=== PATIENT | female | born 1945 | race Caucasian/White ===

== ENCOUNTER → 2016-09-09 | Outpatient (CLI) | payer MEDICARE | END | disposition home or self-care (01) | LOC: GMA 12:28 | PROVIDERS: ATTEND Nurse Practitioner Family | DX: N30.00 Acute cystitis without hematuria (principal) ==

== ENCOUNTER → 2016-09-18 | Outpatient (CLI) | payer MEDICARE | END | disposition home or self-care (01) | LOC: GMAH 14:04 | PROVIDERS: ATTEND Family Medicine | DX: N30.00 Acute cystitis without hematuria (principal) ==

== ENCOUNTER → 2017-01-19 | Outpatient (CLI) | payer MEDICARE | END | disposition home or self-care (01) | LOC: GMA 18:25 | PROVIDERS: ATTEND Nurse Practitioner Family | DX: N30.00 Acute cystitis without hematuria (principal) ==

== ENCOUNTER → 2017-08-09 | Outpatient (CLI) | payer MEDICARE ==
--- NOTE | 2017-08-09 18:59 | CT ---
EXAM DESCRIPTION: Chest w/Contrast CLINICAL HISTORY: RADIOLOGIC ABNORMALITY OF CHEST COMPARISON: CT chest without contrast same day TECHNIQUE: Contiguous axial images of the chest were obtained from the thoracic inlet up to the upper abdomen followed by reconstruction images. This exam was performed according to our departmental dose-optimization program, which includes automated exposure control, adjustment of the mA and/or kV according to patient size and/or use of iterative reconstruction technique. FINDINGS: There is dense consolidation versus mass again seen, measuring 4.3 cm transverse in the medial left upper lung. Mildly enlarged mediastinal lymph nodes are seen. Fairly well-defined low-attenuation 20 mm lesion is seen in the hepatic dome. Poorly defined 5 mm low-attenuation lesion is seen in the right liver. Mildly enlarged left axillary lymph nodes. There are again extensive bilateral emphysematous changes with numerous bilateral pulmonary bulla. No pneumothorax. No other acute abnormality.. The aorta is of normal contour and tapering. IMPRESSION: Possible mass in the left upper medial lung. Findings are worrisome for neoplasm but this could be inflammatory. Granulomatous or fungal etiologies are possible. Follow-up is recommended. Electronically signed by: Glen Lamar 08/09/2017 6:58 PM HAND TACKER
--- NOTE | 2017-08-09 19:06 | CT ---
PROCEDURE: Chest w/o Contrast CLINICAL HISTORY: 72 years Female RADIOLOGIC ABNORMALITY OF CHEST COMPARISON: Chest x-ray study from 08/09/2017. TECHNIQUE: Contiguous axial images obtained through the chest without IV contrast. Reformatted images obtained. This exam was performed according to our department optimization program which includes automated exposure control, adjustment of the mA and/or kv according to patient size and/or use of iterative reconstruction technique. FINDINGS: There is a low-density lesion in the superior liver measuring 1.8 cm that is felt to represent a cyst. There is a 0.55 cm low density lesion in the superior lateral liver which is incompletely characterized on this study. No pericardial effusion. There are several small lymph nodes in the mediastinum. A lymph node visualized adjacent to the mass lesion in the region of the AP window measures 1.1 x 0.6 cm. Mild atherosclerotic calcifications in the thoracic aorta. There is a mass lesion in the superior medial left lung measuring 3.7 cm in height by 3.9 cm in transverse diameter by 3.5 cm in AP diameter. The appearance suggests a malignant lesion. Biopsy recommended. No consolidating infiltrates or pleural effusions. There are emphysematous changes with multiple small blebs visualized throughout the lungs. Degenerative changes in the spine. Mild T8 compression fracture deformity which appears chronic. IMPRESSION: Malignant appearing mass lesion in the superior medial left lung. Biopsy recommended. There are several small lymph nodes in the mediastinum which given the adjacent lung mass are indeterminate. Emphysematous changes in the lungs. Probable cysts in the liver although one of the lesions is too small to adequately characterize on this study. Electronically signed by: Lonny Brady MD 08/09/2017 7:05 PM SENIOR PYTHON DEVELOPER
== END ==
LOC: GMA 17:25
PROVIDERS: ATTEND Physician Assistant
DX: R91.8 Other nonspecific abnormal finding of lung field (principal); R05 Cough

== ENCOUNTER → 2017-11-08 | Outpatient (CLI) | payer MEDICARE | LOC: GMAH 14:37 | PROVIDERS: ATTEND Physician Assistant | DX: N30.00 Acute cystitis without hematuria (principal) ==

== ENCOUNTER → 2017-12-25 | Outpatient (CLI) | payer MEDICARE ==
--- NOTE | 2017-12-25 15:39 | CT ---
EXAM DESCRIPTION: Chest w/Contrast : Computed Tomography. CLINICAL HISTORY: NON-SMALL CELL CARCINOMA OF LEFT LUNG. Follow-up. COMPARISON: CT scan of the chest with IV contrast 08/09/2017. TECHNIQUE: Spiral-axial scans at 5.0 mm intervals through the lungs and thorax without IV contrast. 2.5 mm lung algorithm axial reconstructions. Coronal and sagittal 2.0 Mm reconstructions. No adverse reactions. Total Exam DLP: 299.41 mGy-cm. This exam was performed according to our departmental dose-optimization program which includes automated exposure control, adjustment of the mA and/or kV according to patient size and/or use of iterative reconstruction technique; to reduce radiation dose to as low as reasonably achievable (ALARA). FINDINGS: Again noted is a soft tissue mass with partial enhancement and ill-defined borders abutting the medial left pleura near the apex extending to the level of the left sternoclavicular joint. The mass continues to have spiculated borders, but has decreased in size, measuring 3.5 x 2.8 cm in the transverse plane and 2.[address] through the mass and 3.3 cm along the pleura. Internally the mass contains more air and there is increased amount of airways no visualized in the periphery of the mass. No significant invasion of the adjacent mediastinum though the mass remains adjacent to the junction of the left innominate vein and left internal jugular vein. Lateral and superior to the mass in the anterior lung apex there is increased irregular density not mass but most likely inflammatory reaction within the radiation portal. Parenchymal cystic change is also visualized in this lung segment. Again noted are multiple emphysematous blebs and some emphysematous bulla in a centrilobular pattern throughout both lungs, slightly less prevalent in the lower lobes. Scattered bilateral peripheral groundglass densities are stable. No new remote mass is seen in either lung. No pleural effusion or pneumothorax. Heterogeneous enhancement of the thyroid gland with no adjacent soft tissue masses. No enlarged lymph nodes in the mediastinum and gael or axilla and no new soft tissue masses in these locations. Injection port for VAD is in the superior right breast. VAD tip just above the superior caval atrial junction. Asymmetric density noted in the inferior right breast. No overlying left breast density changes anterior to the lung mass. The peritoneal space subdiaphragmatic region shows no free air or fluid. Normal enhancement and size of the spleen and adrenal glands. Included stomach and pancreas are unremarkable. Stable 2 cm cyst posterior superior right hepatic lobe. Decreased bone density in the thorax with exaggerated kyphosis. Again noted is partial compression of the middle and anterior aspect of the T8 vertebral body stable since the prior study. This is the apex of the kyphosis. No other bony abnormalities, stable since prior CT scan. IMPRESSION: 1. Malignant lesion in the medial apex of the left lung is decreasing in size and central mass, since the prior study August 2017, with increasing number of air and airways seen within the mass. No progressive invasion of the medial left pleura or mediastinum. No new masses or nodules in the lungs bilaterally. Stable diffuse centrilobular emphysema bilaterally. 2. No enlarging lymph nodes or soft tissue masses in the mediastinum hilum neck base chest wall or axilla. VAD centrally with right subclavian access customary position. 3. Questionable increased focal asymmetry in the inferior left breast since the prior study. No record of mammograms at this facility since August 2014. Consider follow-up bilateral digital diagnostic mammogram. 4. Stable 2 cm cyst in the right hepatic lobe. Stable partial compression type vertebral body fracture at T8 with exaggerated kyphosis. Electronically signed by: Glen Acosta MD 12/25/2017 3:38 PM CDT
== END ==
LOC: CT 10:14
PROVIDERS: ATTEND Internal Medicine Hematology & Oncology
DX: C34.92 Malignant neoplasm of unspecified part of left bronchus or lung (principal); D64.81 Anemia due to antineoplastic chemotherapy; T45.1X5A Adverse effect of antineoplastic and immunosuppressive drugs, initial encounter; K76.89 Other specified diseases of liver; M48.54XA Collapsed vertebra, not elsewhere classified, thoracic region, initial encounter for fracture

== ENCOUNTER → 2018-03-28 | Outpatient (CLI) | payer MEDICARE ==
--- NOTE | 2018-03-28 19:25 | CT ---
EXAM DESCRIPTION: Chest w/Contrast : Computed Tomography. CLINICAL HISTORY: NON-SMALL CELL CARCINOMA OF LEFT LUNG COMPARISON: Abdomen and pelvis CT scan with contrast on this visit. CT scan of the chest with contrast 12/25/2017. TECHNIQUE: Spiral-axial scans at 5 x 5 mm intervals through the lungs and thorax with IV contrast. 2.5 mm lung algorithm axial reconstructions. Coronal and sagittal 2.0 Mm reconstructions. No adverse reactions. Total Exam DLP: 355.54 mGy-cm. This exam was performed according to our departmental dose-optimization program which includes automated exposure control, adjustment of the mA and/or kV according to patient size and/or use of iterative reconstruction technique; to reduce radiation dose to as low as reasonably achievable (ALARA). FINDINGS: Compared to the prior study, the mass involving the left anterior medial lung apex and the anterior medial pleura from the left first costosternal cartilage extending just below the level of the aortic arch is essentially absent except for medial pleural thickening and parenchymal density seen on axial series 5, images 5 through 27. However, there is now increased pleural thickening in the left apex anteriorly and laterally and a parenchymal mass has developed anterior to the mid coronal plane, associated with an increase in thickened septa, and emphysematous bulla and cavities in the left upper lobe. This soft tissue mass measures approximately 3.8 x 1.5 x 1.5 cm. Increased pleural thickening, interstitial and septal thickening, and increased cavities and emphysematous bulla are also seen in the posterior left upper lobe and the superior segment of the left lower lobe. Volume loss and elevation of the left hilum is noted. Peripheral groundglass densities seen in the right upper lobe in the apex but not in the remaining segments. There is also groundglass density in the posterior superior apex of the superior segment right lower lobe. Diffuse blebs and bulla again noted in the right lung, but no new nodules in or masses in the right lung or in the left lingula or lower lobe. No pleural effusion or pneumothorax bilaterally. Thyroid gland is stable. No new soft tissue masses or adenopathy in the mediastinum or gael. No new adenopathy in the axilla bilaterally. Stable position of right subclavian VAD with tip in the SVC. Stable spondylosis in the thoracic spine with partial compression of the T8 vertebral body. No new blastic or lytic lesions IMPRESSION: 1. Medial left apical ligament mass is essentially absent except for minimal pleural thickening and parenchymal density abutting the medial mediastinum in the left upper lobe. However a soft tissue mass is now visualized in the anterior medial left apical segment along with significant increase in emphysematous blebs and bulla, cavities, septal thickening and pleural thickening involving the upper left upper lobe and the superior aspect of the superior segment of the left lower lobe. Also volume loss in the left upper lobe and elevation of the left hilum since the prior study. The soft tissue mass could represent atelectatic lung, eighth completely filled cavity, scarring, infiltrate, or less likely, recurrent tumor. These changes may be related to prior therapy. 2. Increased groundglass infiltrate in the superior segment of the right lower lobe and in the periphery of the right upper lobe posteriorly and laterally. Electronically signed by: Glen Acosta MD 03/28/2018 7:23 PM CDT
--- NOTE | 2018-03-28 19:42 | CT ---
EXAM DESCRIPTION: Abdomen w/Contrast: Computed Tomography. CLINICAL HISTORY: LUNG CANCER COMPARISON: None. TECHNIQUE: Spiral-axial scans at 5 x 5 mm intervals through the abdomen, after nonionic IV contrast. No oral contrast. Coronal and sagittal 2.0 mm reconstructions. Delayed 5 x 5 mm scans, liver to the upper pelvis. No adverse reactions. Total Exam DLP: 1142.35 mGy-cm. This exam was performed according to our departmental CT dose-optimization program which includes automated exposure control, adjustment of the mA and/or kV according to patient size and/or use of iterative reconstruction technique; to reduce radiation dose to as low as reasonably achievable (ALARA). FINDINGS: Liver, Stomach, Spleen, Adrenal Glands: Stable cysts in the liver. Stomach is negative. Other solid organs unremarkable. Pancreas, Gallbladder, Ducts: Gallbladder visualized. Ducts and pancreas are negative. Kidneys: Small cysts in the inferior cortex of the left kidney. Included ureters are unremarkable. Mesentery: Question of minimal stranding abutting the distal descending colon and sigmoid. Please see below. No free air or free fluid. Aorta: Minimal atherosclerotic calcification and normal caliber. Small Bowel: Normal caliber and gas unremarkable. Terminal Ileum/Cecum: Negative. Appendix not definitely seen but may be inferior to the imaging [id number] on this study. Normal density of surrounding fat. Colon: Unremarkable to the level of the mid descending colon where the hurd appear to be edematous and the overall caliber of the colon is reduced with loss of haustral markings distal rectosigmoid is not included. Uterus is anteverted and bilateral ovaries partially visualized. Spine: Spondylosis in the thoracic spine and grade 1 L4-5 anterolisthesis. Abdominal Wall/Back Soft Tissues: Unremarkable. IMPRESSION: 1. No masses or enlargement of the abdominal organs. No free fluid peritoneal or retroperitoneal masses. 2. Small cortical cyst inferior left kidney are stable. Stable cysts in the liver. 3. Edema in the hurd of the distal descending colon and sigmoid colon with decreased outer wall caliber of the bowel to the level of the inferior images of the scan. This could represent an early nonspecific colitis. Not seen on the prior study. Electronically signed by: Glen Acosta MD 03/28/2018 7:41 PM CDT
== END ==
LOC: CT 08:26
PROVIDERS: ATTEND Internal Medicine Hematology & Oncology
DX: C34.92 Malignant neoplasm of unspecified part of left bronchus or lung (principal); N28.1 Cyst of kidney, acquired; K76.89 Other specified diseases of liver

== ENCOUNTER → 2018-04-05 | Outpatient (CLI) | payer MEDICARE | LOC: GMATM 12:46 | PROVIDERS: ATTEND Nurse Practitioner Family | DX: N30.00 Acute cystitis without hematuria (principal) ==

== ENCOUNTER → 2018-09-12 | Outpatient (CLI) | payer MEDICARE ==
--- NOTE | 2018-09-13 09:47 | CT ---
EXAM DESCRIPTION: Chest w/o Contrast CLINICAL HISTORY: 73 years, Female, MALIGNANT NEOPLASM OF UNSP PART OF UNSP BRONCHUS OR LUNG COMPARISON: None TECHNIQUE: Thin-section noncontrast axial CT images are obtained according to our protocol. Reconstructed MPR images are created and reviewed as well. FINDINGS: Lungs: Consolidated area in the apicoposterior segment left upper lobe is smaller than on previous study and more posterior in location suggesting radiation fibrosis and retraction with clearance of surrounding radiation pneumonitis. Shrinking tumor might also partially account for the finding. Extensive cystic emphysematous changes throughout the lungs. Reticulonodular infiltrate in the right apex is seen with medial right apical parenchymal scarring. Lesser changes in the superior segment right lower lobe. The cystic changes in the lungs are somewhat unusual and could represent lymphangioleiomyomatosis rather than emphysema. Clinical correlation recommended. Mediastinum: Lymph nodes are normal in size. Port-A-Cath on the right with tip in the lower superior vena cava. Small cystic structure along the left side of the heart may be pericardial cyst 2 cm. This was present previously. A low density lymph node might have similar appearance but is thought less likely. Normal vascular contours. Heart size is normal with no pericardial effusion. Chest wall/axilla: No mass or adenopathy. Breast tissue appears symmetrical. Lower neck/supraclavicular: No mass or adenopathy. Upper abdomen: Cyst in the upper subdiaphragmatic right lobe of the liver measures 2.1 cm. Another tiny cyst more inferiorly in the posterior right lobe measures 4 mm. Prominent intrarenal collecting systems bilaterally similar to previous study. Otherwise unremarkable upper abdominal viscera. Coronal and sagittal reformatted images confirm the findings. Old mid thoracic vertebral compression. Consolidated area in the left upper lobe is smaller than on previous exam. Paramediastinal radiation changes in the upper lung on the right. IMPRESSION: Decreased size of left apical radiation pneumonitis/fibrosis compared to previous study. This exam was performed according to our departmental dose-optimization program, which includes automated exposure control, adjustment of the mA and/or kV according to patient size and/or use of iterative reconstruction technique. Total DLP equals 283.13 mGycm. Electronically signed by: Macario Leone MD 09/13/2018 9:44 AM CDT
== END ==
LOC: CT 10:00
PROVIDERS: ATTEND Family Medicine
DX: C34.90 Malignant neoplasm of unspecified part of unspecified bronchus or lung (principal)

== ENCOUNTER → 2018-12-02 | Outpatient (CLI) | payer MEDICARE | LOC: GMAH 11:38 | PROVIDERS: ATTEND Family Medicine | DX: I10 Essential (primary) hypertension (principal) ==

== ENCOUNTER → 2019-01-18 | Outpatient (CLI) | payer MEDICARE | LOC: GMATM 13:58 | PROVIDERS: ATTEND Nurse Practitioner Family | DX: N30.00 Acute cystitis without hematuria (principal) ==

== ENCOUNTER → 2019-05-26 | Outpatient (CLI) | payer MEDICARE ==
--- NOTE | 2019-05-27 13:46 | CT ---
EXAM DESCRIPTION: Abdomen/Pelvis w/wo Contrast: Computed Tomography. CLINICAL HISTORY: UNSPECIFIED RENAL COLIC. History of lung cancer left upper lobe. COMPARISON: . Chest CT scan without contrast August 2018. CT scan of abdomen and pelvis March 2018. TECHNIQUE: Spiral-axial scans at 5 x 5 mm intervals through the abdomen and pelvis before and after 75 mL Optiray 320 nonionic IV contrast. Coronal and sagittal 2.0 mm reconstructions. 5 mm Delayed helical-axial scans, liver through the pubic symphysis. No adverse reactions. Total Exam DLP 1730.79 mGy - cm. This exam was performed according to our departmental CT dose-optimization program which includes automated exposure control, adjustment of the mA and/or kV according to patient size and/or use of iterative reconstruction technique; to reduce radiation dose to as low as reasonably achievable (ALARA). FINDINGS: Kidneys and Ureters: Mild bilateral hydronephrosis, and proximal pelvic mild enlargement. Caliber of the ureters upper normal limits especially mid right ureter. Bilateral ureters course anterior to the bilateral common iliac arteries with mass effect on the distal mid right ureter from small bowel, right common iliac artery, distal right psoas muscle and common right iliac vein. The iliac artery is not calcified at this segment. No mass effect on the left ureter. Bilateral small renal cysts are stable. Pelvic Organs: Normal position of the uterus. Calcification in the superior myometrium. Borderline thickening of the endometrial canal 10 mm. Calcifications in the cervix.. Calcifications in the pelvis. No fluid in the cul-de-sac. Left ovary visualized, right ovary small over this represents another soft tissue structure. Lung bases and pleura: Left pleural effusion. Hyperinflated lungs with bilateral scattered blebs and bulla in the upper and midlung tyler. Minimal scarring in the left lower lobe. Minimal coronary artery calcification. 3 mm subpleural solid nodule in the lateral right lower lobe on the prior study now measures 5.2 mm with minimally lobulated margins but no spiculations. Liver, Stomach, Spleen, Adrenal Glands: 2.1 cm cyst near the dome of the right liver subcapsular and stable. Other stable smaller subcapsular cyst lateral right lobe. Liver slightly smaller since the prior study. Stomach and other solid organs are negative. Pancreas, Gallbladder, Ducts: Common bile duct slightly dilated. Heterogeneous appearance of the pancreatic head immediately delay IV contrast. No surrounding fatty inflammatory changes. Stable since the prior study. Mesentery: No fatty stranding fascial thickening free air or free fluid. Aorta: Minimal atherosclerotic calcification and normal caliber. Small Bowel: Minimal gas no significant distention or air-fluid levels. Terminal Ileum/Cecum: Normal caliber. Retrocecal appendix short with no inflammatory changes. Colon: Edematous hurd of the transverse and descending and proximal sigmoid colon with no significant distention and no serosal abnormality or inflammatory changes in the surrounding mesentery. This was also seen on the prior study beginning at the splenic flexure. No obstruction. Spine and Bony Pelvis: Spondylosis lower thoracic spine and minimal dextroscoliosis. Mixed density lesion, enlarging in the mid left iliac bone abutting the superior facet of the left SI joint since the prior study and less well-defined margins. Measures approximately 2.9 x 2.1 x 1.5 cm. No adjacent soft tissue mass. Questionable lytic lesion in the more superior left iliac crest on axial images -. This could represent physiologic thinning of the bone. No soft tissue mass. Abdominal Wall/Back Soft Tissues: Small fatty inguinal hernias bilaterally. Minimal umbilical diastases not containing bowel. IMPRESSION: 1. Right pleural effusion this patient with lung cancer right upper lobe with prior treatment. New since chest CT scan August 2018. Enlarging solid pulmonary nodule in the subpleural right lower lobe since that same CT scan. Stable emphysematous disease in the mid and lower lung tyler. Consider diagnostic left thoracentesis. Dr. Santos states that patient is scheduled for lung CT scan the first week of June 2019. 2. Heterogeneous appearance of the pancreatic head with dilation of the common bile duct is stable. 3. Sclerotic lesion seen on the prior study in the iliac bone abutting the superior facet of the left SI joint, is now larger with mixed density but no definite cortical breakthrough or soft tissue mass. Is there history of bone marrow donor site or biopsy? Possible lytic lesion mid left iliac crest without soft tissue mass, not seen on the prior pelvic CT scan. Consider radionuclide bone imaging or PET imaging. 4. Mild bilateral hydronephrosis and prominence of the bilateral renal pelves stable since the prior study. Minimal mass effect on the distal mid right ureter, by vascular and soft tissue structures, but no hydroureter bilaterally. 5. Edematous hurd of the mid and distal colon without obstruction or inflammatory changes in the surrounding fatty tissues. More proximal than on the prior study. Is there history of colitis? CRITICAL COMMUNICATION: The critical value was discussed directly by phone by Dr. Acosta, with Dr. Antonio Santos, at approximately 1335 hours, on May 27, 2019 Electronically signed by: Glen Acosta MD 05/27/2019 1:44 PM [facility]
== END ==
LOC: LAB.O 10:02
PROVIDERS: ATTEND Family Medicine
DX: N13.30 Unspecified hydronephrosis (principal); N28.9 Disorder of kidney and ureter, unspecified; J90 Pleural effusion, not elsewhere classified; R91.1 Solitary pulmonary nodule; J43.9 Emphysema, unspecified; M89.9 Disorder of bone, unspecified; R60.9 Edema, unspecified

== ENCOUNTER → 2019-10-13 | Outpatient (CLI) | payer MEDICARE ==
--- NOTE | 2019-10-13 12:11 | CT ---
EXAM DESCRIPTION: Abdoment/Pelvis w/o Contrast (accession [id number]), Chest w/o Contrast (accession [id number]) CLINICAL HISTORY: 74 years Female, NON-SMALL CELL CARCINOMA COMPARISON: CT abdomen and pelvis 05/26/2019. CT chest 09/12/2018. TECHNIQUE: CT images of the chest, abdomen, and pelvis without IV contrast. Multiplanar reformations provided. This exam was performed according to our departmental dose-optimization program, which includes automated exposure control, adjustment of the mA and/or kV according to patient size and/or use of iterative reconstruction technique. CT CHEST FINDINGS: Heart and mediastinum: Heart is normal size. Small pericardial effusion measuring up to 4 mm in thickness anteriorly. Unremarkable esophagus. Mild atherosclerosis. No mediastinal adenopathy appreciated. Evaluation for hilar lymphadenopathy limited without intravenous contrast. Effusion port in the right chest wall with its right IJ central venous catheter terminating near the cavoatrial junction. Thyroid Gland: Normal. Lungs: Emphysematous changes bilaterally. There are multiple nodules throughout the lungs, reference nodule is a 6 mm round partially solid nodule measuring 6 mm in the right lower lobe on image 61, series 8. This measurement of 5 mm on 05/26/2019 and no greater than 2 mm on 09/12/2018. There is masslike consolidation within the posterior left upper lobe extending to the hilum. This is becoming more solid and confluent when compared to 09/12/2018 with mild air bronchograms internally. Airways: Mild bronchiectasis. No airway filling defects. Pleura: Large left pleural effusion. No pneumothorax. Musculoskeletal and Soft Tissues: No acute fracture or aggressive appearing osseous lesion. Soft tissues unremarkable. CT ABDOMEN/PELVIS FINDINGS: Solid Organs: Stable hypodense lesions within the liver measuring up to 2.2 cm in the right hepatic dome as before which may represent hemangiomas or cysts. Unremarkable noncontrast appearance of the spleen, pancreas, gallbladder, adrenal glands, and kidneys. GI tract: Normal-appearing stomach. No small bowel obstruction. Mild chronic stool. Normal appendix. Vascular: Mild atherosclerosis. Musculoskeletal and soft tissues: No acute fracture. Stable sclerosis along the left ilium. Soft tissues unremarkable. Urinary bladder: Normal. Uterus and adnexa: Unremarkable uterus. Other: None. IMPRESSION: 1. Increased masslike consolidation in the left upper lobe and increased now large left pleural effusion. Although findings may be contributed by posttreatment related changes, recurrence of malignancy is of primary concern. PET/CT may be obtained to further evaluate. 2. Redemonstrated subcentimeter lung nodules which may represent intrapulmonary metastases. 3. Stable sclerosis left ilium when compared to 05/26/2019. Bone metastases considered versus posttreatment related changes, if performed. This can be further evaluated with PET/CT as well and nuclear medicine bone scan if indicated. Electronically signed by: Gunner Sims MD 10/13/2019 12:09 PM CDT
== END ==
LOC: CT 10:48
PROVIDERS: ATTEND Internal Medicine Hematology & Oncology
DX: C34.92 Malignant neoplasm of unspecified part of left bronchus or lung (principal); R91.8 Other nonspecific abnormal finding of lung field; J90 Pleural effusion, not elsewhere classified; M89.9 Disorder of bone, unspecified

== ENCOUNTER 2019-11-20 18:44 | Emergency (ER) | payer MEDICARE ==
[2019-11-20] MEDS ORDERED: TETANUS,DIPHTHERIA,PERTUSSIS 1 EA SYG IM ONE (18:51)
[2019-11-20 18:59] VITALS: O2SAT 95
--- NOTE | 2019-11-20 19:41 | RAD ---
EXAM DESCRIPTION: Wrist,Right 3 Views CLINICAL HISTORY: 74 years Female fall with right wrist pain and swelling. COMPARISON: None TECHNIQUE: Three images of the right wrist were obtained. FINDINGS: Impacted fractures distal radius. Nondisplaced fracture ulnar styloid. Suspected fracture waist navicular bone. Moderate bony demineralization. Mild erosive change lunate bone. IMPRESSION: Fractures distal radius and ulna as well as navicular bone. Electronically signed by: Fatou Campbell MD 11/20/2019 7:39 PM CDT
--- NOTE | 2019-11-20 19:53 | CT ---
EXAM: Head CLINICAL INDICATION: 74-year-old female status post fall with head trauma. COMPARISON: None. TECHNIQUE: CT brain without contrast. This exam was performed according to our departmental dose optimization program which includes use of automated exposure control, adjustment of the mA and/or kV according to patient size and/or use of iterative reconstruction technique. FINDINGS: The ventricles, sulci, and cisterns are within normal limits. The kelly-white matter differentiation is preserved. There is no mass effect, midline shift, intra- or extra-axial fluid collection/acute hemorrhage. The osseous review a focal area of groundglass attenuation at the level of the LEFT orbital roof with expansile appearance diffusely measuring approximately up to 2.8 cm in diameter. This finding raises the possibility of groundglass type bony lesion favoring fibrous dysplasia, however correlation with patient prior imaging and clinical history is recommended to exclude the possibility of other sclerotic type bony lesion. The paranasal sinuses and mastoid air cells are clear. 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 IMPRESSION: 1. No acute intracranial abnormalities. 2. 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 Correlation with patient clinical history, prior imaging is recommended. Electronically signed by: Carolee Bradford MD 11/20/2019 7:51 PM CDT
--- NOTE | 2019-11-20 20:42 | ED.PDOC ---
History of Present Illness - General Chief Complaint: Trauma Stated Complaint: I tripped and fell Time Seen by Provider: 11/20/19 18:50 Source: patient, RN notes reviewed, Vital Signs reviewed, family - Exam Limitations: no limitations - History of Present Illness Initial Comments: Patient presents with her status post trip and fall. Patient complains of some facial pain, head pain and right wrist pain. The pain is throbbing in nature. Worse with movement or palpation. Better with immobilization. Nonradiating occurred less than 1 hour ago. Timing/Duration: 1/2 hour Severity: mild Improving Factors: immobilization Worsening Factors: movement Associated Symptoms: headaches, nausea/vomiting Allergies/Adverse Reactions: Allergies Morphine Allergy (Unverified 01/31/13 14:18) Penicillins Allergy (Unverified 01/31/13 14:18) Review of Systems - Review of Systems Constitutional: States: no symptoms reported, see HPI EENTM: States: nose pain. Denies: blurred vision, double vision Respiratory: States: no symptoms reported. Denies: cough, short of breath Cardiology: States: no symptoms reported. Denies: chest pain, palpitations, syncope Gastrointestinal/Abdominal: States: see HPI, nausea Genitourinary: States: no symptoms reported Musculoskeletal: States: see HPI, joint pain. Denies: back pain, neck pain Skin: States: see HPI, other - Facial lacerations and hand lacerations Neurological: States: no symptoms reported. Denies: tingling, weakness Endocrine: States: no symptoms reported Hematologic/Lymphatic: States: no symptoms reported All other Systems: No Change from Baseline Past Medical History (General) - Patient Medical History Hx Seizures: No Hx Stroke: No Hx Dementia: No Hx Asthma: No Hx of COPD: No Hx Cardiac Disorders: No Hx Congestive Heart Failure: No Hx Pacemaker: No Hx Hypertension: No Hx Thyroid Disease: No Hx Diabetes: No Hx Gastroesophageal Reflux: No Hx Renal Disease: No Hx Cancer: Yes - Lung Hx Hepatitis C: No Hx MRSA: No Surgical History: tonsillectomy, other - Vaccination History Hx Tetanus, Diphtheria Vaccination: No Hx Influenza Vaccination: Yes Hx Pneumococcal Vaccination: Yes - Social History Hx Tobacco Use: Yes Hx Chewing Tobacco Use: No Hx Alcohol Use: Yes Hx Substance Use: No Hx Substance Use Treatment: No Hx Depression: No Feels Threatened In Home Enviroment: No Feels Threatened In a Relationship: No Hx Physical Abuse: No Hx Emotional Abuse: No Hx Suspected Abuse: No - Female History Patient is a Female of Child Bearing Age (10 -59 yrs old): No Family Medical History - Family History Mother Family History: Unknown Physical Exam - Physical Exam General Appearance: Alert, Anxious, Obvious distress, Well Developed, Well Groomed, Well Hydrated, Well Nourished Eye Exam: bilateral normal Ears, Nose, Throat: hearing grossly normal, normal pharynx, other - Small stel late laceration to the bridge of the nose. Neck: non-tender, full range of motion, supple Respiratory: chest non-tender, lungs clear, normal breath sounds, no respiratory distress, no accessory muscle use Cardiovascular/Chest: normal peripheral pulses, regular rate, rhythm, no edema, no gallop, no JVD, no murmur Peripheral Pulses: radial,right: 2+, radial,left: 2+ Gastrointestinal/Abdominal: normal bowel sounds, non tender, soft Back Exam: normal inspection, no CVA tenderness, no vertebral tenderness Extremity: deformity - Right wrist, swelling - Right wrist neurovascularly intact distally. 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 Small stellate laceration of the upper lip. Multiple small flap-like lacerations to the right palm of the hand. Lymphatic: no adenopathy Progress - Progress Progress: Differential diagnosis: Skull fracture, right wrist fracture, facial bone fractures, skin lacerations among others. 11/20/19 20:46 CT the head is negative for any acute injury. Right wrist series shows multiple fractures including the radius, ulna and navicular bone. Patient's been placed in a sugar tong splint and is having no pain at this time. Patient's lacerations were glued shut with Dermabond. Plan on discharge home with follow- up with orthopedics. I discussed this plan of care with the patient and her and they voiced understanding and agreement with the plan of care. Lonny Khanna M.D. #[id number] - Results/Orders Results/Orders: EXAM: Head CLINICAL INDICATION: 74-year-old female status post fall with head trauma. COMPARISON: None. TECHNIQUE: CT brain without contrast. This exam was performed according to our departmental dose optimization program which includes use of automated exposure control, adjustment of the mA and/or kV according to patient size and/or use of iterative reconstruction technique. FINDINGS: The ventricles, sulci, and cisterns are within normal limits. The kelly-white matter differentiation is preserved. There is no mass effect, midline shift, intra- or extra-axial fluid collection/acute hemorrhage. The osseous review a focal area of groundglass attenuation at the level of the LEFT orbital roof with expansile appearance diffusely measuring approximately up to 2.8 cm in diameter. This finding raises the possibility of groundglass type bony lesion favoring fibrous dysplasia, however correlation with patient prior imaging and clinical history is recommended to exclude the possibility of other sclerotic type bony lesion. The paranasal sinuses and mastoid air cells are clear. 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 IMPRESSION: 1. No acute intracranial abnormalities. 2. 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 Correlation with patient clinical history, prior imaging is recommended. Electronically signed by: Carolee Bradford MD 11/20/2019 7:51 PM CDT EXAM DESCRIPTION: Wrist,Right 3 Views CLINICAL HISTORY: 74 years Female fall with right wrist pain and swelling. COMPARISON: None TECHNIQUE: Three images of the right wrist were obtained. FINDINGS: Impacted fractures distal radius. Nondisplaced fracture ulnar styloid. Suspected fracture waist navicular bone. Moderate bony demineralization. Mild erosive change lunate bone. IMPRESSION: Fractures distal radius and ulna as well as navicular bone. Electronically signed by: Fatou Campbell MD 11/20/2019 7:39 PM CDT Vital Signs 11/20/19 11/20/19 11/20/19 18:54 19:44 20:00 Temperature 98.3 F Pulse Rate [ 98 H 82 76 Pulse Ox] Respiratory 18 14 16 Rate Blood Pressure 148/88 128/75 122/68 [Left Arm] O2 Sat by Pulse 95 95 95 Oximetry Departure - Departure Clinical Impression: Fall Qualifiers: Encounter type: initial encounter Qualified Code(s): W19.XXXA - Unspecified fall, initial encounter Facial laceration Qualifiers: Encounter type: initial encounter Qualified Code(s): S01.81XA - Laceration without foreign body of other part of head, initial encounter Radius and ulna distal fracture Qualifiers: Encounter type: initial encounter Fracture type: closed Laterality: right Qualified Code(s): S52.501A - Unspecified fracture of the lower end of right radius, initial encounter for closed fracture; S52.601A - Unspecified fracture of lower end of right ulna, initial encounter for closed fracture Scaphoid fracture, wrist, closed Qualifiers: Encounter type: initial encounter Scaphoid bone location: middle third Fracture alignment: nondisplaced Laterality: right Qualified Code(s): S62.024A - Nondisplaced fracture of middle third of navicular [scaphoid] bone of right wrist, initial encounter for closed fracture Contusion of head Qualifiers: Encounter type: initial encounter Contusion of head detail: unspecified part of head Qualified Code(s): S00.93XA - Contusion of unspecified part of head, initial encounter Time of Disposition: 20:49 Disposition: Discharge to Home or Self Care Condition: Good Departure Forms: ED Discharge - Pt. Copy, Patient Portal Self Enrollment Instructions: DI for Trauma, Wrist Fracture (DC), Laceration Repair With Glue (DC), Minor Head Injury (DC) Diet: resume usual diet Activity: increase activity as tolerated Referrals: Antonio Valles MD [Primary Care Provider] - 1-5 Days Lance Pal MD [Active Staff] - 1-5 Days
[2019-11-20 21:05] VITALS: BP 118/72; TEMP 98
== END 2019-11-20 20:54 | disposition home or self-care (01) ==
LOC: ER 18:44
DX: S52.501A Unspecified fracture of the lower end of right radius, initial encounter for closed fracture (principal); S52.601A Unspecified fracture of lower end of right ulna, initial encounter for closed fracture; S62.024A Nondisplaced fracture of middle third of navicular [scaphoid] bone of right wrist, initial encounter for closed fracture; S01.21XA Laceration without foreign body of nose, initial encounter; S61.411A Laceration without foreign body of right hand, initial encounter; S01.511A Laceration without foreign body of lip, initial encounter; R51 Headache; Z87.891 Personal history of nicotine dependence; W01.0XXA Fall on same level from slipping, tripping and stumbling without subsequent striking against object, initial encounter; Y92.9 Unspecified place or not applicable

== ENCOUNTER → 2019-11-25 | Outpatient (CLI) | payer MEDICARE ==
--- NOTE | 2019-11-25 14:02 | CT ---
EXAM DESCRIPTION: Abdomen/Pelvis w/Contrast (accession [id number]), Chest w/Contrast (accession [id number]) CLINICAL HISTORY: 74 years Female, LUNG MASS TECHNIQUE: This exam was performed according to our departmental dose-optimization program, which includes automated exposure control, adjustment of the mA and/or kV according to patient size and/or use of iterative reconstruction technique. COMPARISON: October 13, 2019 FINDINGS: Right chest wall port tip within the SVC. The thyroid gland is unremarkable. No axillary adenopathy. Normal caliber thoracic aorta. Trace pericardial fluid. No mediastinal adenopathy. The pulmonary artery is grossly unremarkable. Similar emphysema. Moderate left pleural effusion. No pneumothorax. Increased masslike consolidation in the left upper lobe in the region of the previously described postradiation therapy change measuring 4.5 x 3.4 cm axial image 35. Redemonstrated scattered solid noncalcified subcentimeter pulmonary nodules. For reference in the right lower lobe measuring 6 mm axial image 60. In the right middle lobe measuring 5 mm axial image 66. These are similar in size to the more recent comparison October 13, 2019, however they do appear increased in solid component when compared to more remote examinations. Hepatic dome cyst. No suspicious hepatic lesion. No biliary dilatation. The gallbladder is unremarkable. The portal vein is patent. The spleen, pancreas and adrenal glands are unremarkable. Symmetric renal parenchymal enhancement. No hydronephrosis. No urolithiasis. Unremarkable bladder. No suspicious adnexal lesion. Scattered colonic diverticula without focal inflammatory change. No evidence of bowel obstruction. No findings to suggest appendicitis. No adenopathy. No focal fluid collection. No free air. Normal caliber abdominal aorta. Mild atherosclerotic disease. There is a newly visualized sclerotic lesion in the posterior aspect of the C7 vertebral body measuring 1.6 cm axial image four interval T5 compression fracture with approximately 50% height loss anteriorly. Similar sclerotic lesion in the left iliac crest. IMPRESSION: 1. Increased masslike consolidation in the left upper lobe worrisome for recurrent disease. 2. Increased solid component of the multiple scattered subcentimeter pulmonary nodules worrisome for metastatic disease. 3. Newly visualized sclerotic lesion in the posterior aspect of the C7 vertebral body worrisome for osseous metastatic disease. 4. Interval T5 compression fracture with approximately 50% height loss. Electronically signed by: Braydon Ruby MD 11/25/2019 2:00 PM CDT
== END ==
LOC: CT 10:38
PROVIDERS: ATTEND Internal Medicine Hematology & Oncology
DX: Z01.812 Encounter for preprocedural laboratory examination (principal); C34.92 Malignant neoplasm of unspecified part of left bronchus or lung; R91.8 Other nonspecific abnormal finding of lung field; M89.9 Disorder of bone, unspecified; M48.54XA Collapsed vertebra, not elsewhere classified, thoracic region, initial encounter for fracture

== ENCOUNTER → 2019-11-27 | Outpatient (CLI) | payer MEDICARE ==
--- NOTE | 2019-11-27 08:42 | RAD ---
EXAM DESCRIPTION: Wrist,Right 3 Views CLINICAL HISTORY: 74 years, Female, PAIN IN RIGHT WRIST COMPARISON: 11/20/2019 TECHNIQUE: Frontal, lateral, and oblique views of the Right wrist was obtained. FINDINGS: Images of the Right wrist demonstrate healing impacted intra-articular fracture of the distal radius, minimally displaced fracture of the ulnar styloid base, and a nondisplaced fracture of the scaphoid waist is redemonstrated with slightly increased callus formation and stable osseous alignment. Overlying splint material is present. 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 IMPRESSION: 1. Healing fractures of the right distal radius, ulna, and scaphoid in stable osseous alignment. Electronically signed by: Terry Crockett DO 11/27/2019 8:40 AM CDT
== END ==
LOC: RAD 07:52
PROVIDERS: ATTEND Orthopaedic Surgery
DX: S52.501D Unspecified fracture of the lower end of right radius, subsequent encounter for closed fracture with routine healing (principal); S52.601D Unspecified fracture of lower end of right ulna, subsequent encounter for closed fracture with routine healing; S62.024D Nondisplaced fracture of middle third of navicular [scaphoid] bone of right wrist, subsequent encounter for fracture with routine healing

== ENCOUNTER → 2019-12-11 | Outpatient (CLI) | payer MEDICARE ==
--- NOTE | 2019-12-11 12:55 | RAD ---
EXAM DESCRIPTION: Wrist,Right 3 Views CLINICAL HISTORY: 74 years, Female, CLOSED FRACTURE OF DISTAL END OF RIGHT RADIUS COMPARISON: Previous x-ray right wrist November 27, 2019 FINDINGS: Right wrist 3 x-ray views is positive for healing fracture of the distal radial metaphysis. Sclerotic changes are noted consistent with development of bridging callus. A post ulnar styloid is seen without change in alignment compared to previous. Bones of the carpus appear intact. Intact metacarpals. Degenerative narrowing of the interphalangeal joint of the right thumb. Carpal relationships are well-maintained. Degree of dorsal angulation on the lateral view is stable compared to previous study. IMPRESSION: Healing fracture of the distal right radius. Avulsed ulnar styloid. Electronically signed by: Macario Leone MD 12/11/2019 12:54 PM CDT
== END ==
LOC: RAD 09:30
PROVIDERS: ATTEND Orthopaedic Surgery
DX: S52.501D Unspecified fracture of the lower end of right radius, subsequent encounter for closed fracture with routine healing (principal); S52.611D Displaced fracture of right ulna styloid process, subsequent encounter for closed fracture with routine healing

== ENCOUNTER → 2020-01-01 | Outpatient (CLI) | payer MEDICARE ==
--- NOTE | 2020-01-01 09:02 | RAD ---
EXAM DESCRIPTION: Wrist,Right 3 Views CLINICAL HISTORY: 74 years, Female, closed fracture of distal end of radius COMPARISON: Previous x-ray images of the right wrist from December 11, 2019 and November 27, 2019 and November 20, 2019 FINDINGS: Right wrist 3 x-ray views is positive for impacted Colles' type fracture with dorsal angulation of the radial articular surface approximately 25 degrees. Buckling the cortex is seen posteriorly. Impacted sclerotic fracture line through the distal radial epiphyseal/metaphyseal region. Compared to previous study December 11, 2019, no change in configuration. Partial healing with early remodeling has occurred. A bolster ulnar styloid is noted with gap at the fracture site measuring 3 mm. In addition, fractured scaphoid is noted with linear fracture line extending across the scaphoid best seen on the PA image (magnified). Scaphoid fracture appears stable compared to the previous study. Mild narrowing of the radiocarpal joint. Mild widening of the scapholunate distance may indicate ligamentous insufficiency or tear. Moderate degenerative changes at the first carpometacarpal joint and second carpometacarpal joint. Advanced degenerative osteoarthrosis with prominent spurring at the interphalangeal joint of the thumb. Normal metacarpals. IMPRESSION: Healing fractures of the distal radius, ulnar styloid and mid scaphoid. Electronically signed by: Macario Leone MD 01/01/2020 9:00 AM CDT
== END ==
LOC: RAD 08:23
PROVIDERS: ATTEND Orthopaedic Surgery
DX: S52.501D Unspecified fracture of the lower end of right radius, subsequent encounter for closed fracture with routine healing (principal); S52.614D Nondisplaced fracture of right ulna styloid process, subsequent encounter for closed fracture with routine healing; S62.021D Displaced fracture of middle third of navicular [scaphoid] bone of right wrist, subsequent encounter for fracture with routine healing

== ENCOUNTER → 2020-03-15 | Outpatient (CLI) | payer MEDICARE | LOC: GMA MATASK 10:53 | PROVIDERS: ATTEND Family Medicine | DX: I10 Essential (primary) hypertension (principal); E78.2 Mixed hyperlipidemia ==

== ENCOUNTER → 2020-06-21 | Outpatient (CLI) | payer MEDICARE | LOC: HHH 13:00 | PROVIDERS: ATTEND Internal Medicine Hematology & Oncology | DX: C34.82 Malignant neoplasm of overlapping sites of left bronchus and lung (principal) ==